=== PATIENT | male | born 1930 | race Caucasian/White ===

== ENCOUNTER 2018-01-10 09:54 | Outpatient (RCR) | payer MEDICARE ==
[2015-05-22 11:17] VITALS: Wt 83.3 kg
[2018-01-07 10:54] VITALS: BP 116/59
[2018-01-07 11:07] LABS: PLATELET COUNT, AUTOMATED 332 K/uL (150-450)
[~2018-01-10 09:54] MED LIST: ADV100/50 INH; ALBU8.5H IH; ASCO-182 PO; CALC-734 PO; CALCIUM PO; CEPH500C24 PO; CHOL100052 PO; FLU IM; FLUT1DIS27 IH; FLUT50DI3; GAB100 PO; GABA-503 PO; GLUC100026 PO; GUAI600T57 PO; LATODPT OD; LISI-351 PO; LOR5 PO; LOR5/325 PO; MUCINEX PO; OMEP-125 PO; OMEP-218 PO; PROAIRPT IH
[2018-01-10 10:02] VITALS: BP 116/61
--- NOTE | 2018-01-11 16:24 | ONCOLOGY FOLLOW UP NOTE ---
EVENT DATE: January 10, 2018 CHIEF COMPLAINT/REASON FOR VISIT Mr. Cardozo is a pleasant 87-year-old gentleman with a history of stage III colon cancer, here for followup. HISTORY OF PRESENT ILLNESS James returns. He had a large right-sided colon adenocarcinoma removed in June 2015. One of 16 lymph nodes was positive, making this a stage III cancer. We discussed adjuvant Xeloda, but he declined chemotherapy. He continues to feel quite well. His energy is good and he continues to drive. He is able to do all of his activities of daily living without issue. Bowel movements are unremarkable. No fevers, chills, weight change, abdominal pain, other concerning signs or symptoms. He does have what appears to be a venous ulcer on the right ankle, and I will set him up with wound care as well as a followup with Dr. Barnett. I believe that this is more likely related to circulation as opposed to a skin cancer or other issue. He has a followup later this month with Dermatology who will review it as well, but I would like to get Wound Care involved now. His CEA remains normal. PAST MEDICAL HISTORY, PAST SURGICAL HISTORY Hernia repair, shoulder repairs, hypertension, COPD, migraine headaches, asthma , osteoarthritis, stage III colon cancer. FAMILY HISTORY Mother at a young age from cancer of unknown type. SOCIAL HISTORY The patient is and presents with his . He has two children, ages 61 and 62, retired. A 30-pack year history of smoking, quitting in 1959. No significant alcohol use. REVIEW OF SYSTEMS CONSTITUTIONAL: Positive fatigue, mild. SKIN: The patient has a history of AKs that are followed closely by Dermatology. New ulcer on the right ankle. CARDIOVASCULAR: No chest pain or dyspnea on exertion. RESPIRATORY: No shortness of breath, wheeze or cough. GASTROINTESTINAL: No nausea, vomiting or blood in the stool. GENITOURINARY: No dysuria or hematuria. MUSCULOSKELETAL: No weakness or joint pain. PSYCHIATRIC: No anxiety or depression. ENDOCRINE: No heat or cold intolerance. NEUROLOGIC: No concerning neurologic deficits. HEMATOLOGIC/LYMPHATIC: No concerning lumps or bumps. The remainder of the 14-point review of systems otherwise negative. PHYSICAL EXAMINATION VITAL SIGNS: Blood pressure 116/61, pulse 82, respiratory rate 16, temperature 97 Fahrenheit. Oxygen saturation 98% on room air. Pain is 0/10 fatigue 0/10. Weight 83.3 kg. GENERAL: Stable condition, resting comfortably in the chair. SKIN: Patient has a 0.75 cm ulcer with surrounding scale on the right ankle. No signs of infection. I feel this is an ulcer as opposed to a skin lesion. HEENT: Normocephalic, atraumatic. CARDIOVASCULAR: Regular rate and rhythm. LUNGS: Clear. ABDOMEN: Soft, nontender, no masses or organomegaly. EXTREMITIES: No clubbing, cyanosis or significant edema. Trace edema in both ankles. Remainder of physical exam otherwise unremarkable. IMPRESSION AND PLAN Mr. Cardozo is a very pleasant 87-year-old gentleman with the following. 1. Stage III colon cancer with a large primary tumor in one of 16 lymph nodes positive. He declined chemotherapy, which is reasonable. Continue active surveillance. We will see him every three to four months. Scans as needed. 2. Ulcer of the skin on the right ankle. Established with Wound Care today ideally and followup with Dr. Barnett as well as with Dermatology as planned. I answered all of his questions today. Billing: Return visit level 3. Total time 20 minutes, counseling time 15. MTDD
[2018-02-04] MEDS ORDERED: CEPH-13 PO (16:17)
== END 2018-02-11 16:20 | disposition home or self-care (01) ==
LOC: ONC 09:54
PROVIDERS: ATTEND Nurse Practitioner Family
DX: C18.2 Malignant neoplasm of ascending colon (principal); C77.9 Secondary and unspecified malignant neoplasm of lymph node, unspecified; L97.319 Non-pressure chronic ulcer of right ankle with unspecified severity; R53.83 Other fatigue
CPT/HCPCS: 36415; 82378; 85025; G0463; 82040; 82247; 82310; 82374; 82435; 82565; 82947; 84075; 84132; 84155; 84295; 84450; 84460; 84520; 99212

== ENCOUNTER 2018-02-16 11:15 | Outpatient (RCR) | payer MEDICARE ==
[2015-05-22 11:17] VITALS: BMI 22.4
--- NOTE | 2018-01-11 08:12 | PT INITIAL EVALUATION ---
MEDICAL DIAGNOSIS: R) lateral ankle wound TREATMENT DIAGNOSIS: R) lateral ankle ulcer DATE OF ONSET: Patient reports wound has been present for "5 months" SUBJECTIVE: The patient presents today [facility], he was referred for wound care on R) lateral ankle wound. He reports that he noticed the wound about 5 months ago, but thought that it was a "melanoma spot ". He reports intermittent pain and sensitivity in the area. He occasionally covers the wound and applies ointment. REHAB PROBLEM LIST: Open wound of R) distal LE PREVIOUS MEDICAL HISTORY: h/o melanoma, stage III colon cancer with colon resection in 2015, COPD, restless leg syndrome OBJECTIVE: Wound Measurement L) lateral ankle, superior to malleolus: 1.3 cm L x 1.4 cm W x0.1 cm D ABIs R) LE: 1.15 L) LE: 1.17 Circumferential Measurements R) LE Superior to malleolus: 27.5 cm Mid calf: 32 cm L) LE Superior to malleolus: 23 cm Mid calf: 34 cm ASSESSMENT: The patient presents with small ulceration just superior to the lateral malleolus on the R) ankle. Wound bed demonstrates moderate slough, with mild erythema of the periwound skin and slight edema of the entire distal LE. PT completed conservative, selective debridement of non-viable tissue and slough with tweezers to the depth of the subcutaneous tissue. Pt with increased tenderness with palpation and debridement. Wound cleansed with sterile saline and gauze and then treated with medical honey, followed by calcium alginate with silver and a silicone bordered dressing. ABIs were measured bilaterally and found to be WNL (R=1.15, L=1.17). PT applied a short stretch compression wrap in a retrograde fashion to the L) LE to assist with LE edema management. 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 He will benefit from skilled PT wound care to include sharps debridement as well as advanced wound care product selection and application to facilitate wound healing. Short Term Goals 1: Pt to maintain clean, dry and intact dressing between wound care visits 2: Wound to demonstrate 100% granulation tissue with no s/s of infection 3: Wound to gradually epithelialize from the edges inward and demonstrate 100% closure 4: Pt to obtain appropriate compression garments for bilateral LEs to assist with LE edema management Patient's Goals Wound healing PLAN: Patient to be seen for skilled PT wound care to include sharps debridement as well as advanced wound care product selection and application to facilitate wound healing 1-2x/week for up to 90 days. Thank you for this referral. If you have any questions, comments, or concerns about this report or plan, please contact me at . Latrice Linares, PT, DPT MTDD
[~2018-02-16 11:15] MED LIST changes: +CEPH-13 PO
--- NOTE | 2018-02-16 13:58 | PT PLAN OF CARE ---
Physician: Dr. Sol Patient is being seen: James Bragg Therapist: Latrice Linares, PT, DPT Medical Diagnosis: R) lateral ankle wound Treatment Diagnosis: R) lateral ankle ulcer Date of Onset: Date of Initial Evaluation: 01/10/18 Date patient was last seen: 02/16/18 Number of treatments: 10 Number of cancellations/No shows: 0 INTERVENTIONS: The patient was seen for skilled sharps debridement as well as advanced wound care product selection and application to facilitate wound healing. He was fit for bilateral compression stockings and currently owns 2 pairs, which he plans to wear daily upon d/c. The patient was educated on proper skin care to prevent further ulceration. The patient has demonstrated excellent compliance and follow through. GOALS: 1: Pt to maintain clean, dry and intact dressing between wound care visits 2: Wound to demonstrate 100% granulation tissue with no s/s of infection 3: Wound to gradually epithelialize from the edges inward and demonstrate 100% closure 4: Pt to obtain appropriate compression garments for bilateral LEs to assist with LE edema management PATIENT'S GOAL: Wound healing Status of Patient's Goals: met Patient Compliance: Excellent Prognosis: Excellent Reasons for continuing therapy: None at this time. Wound is fully epithelialized. There continues to be dried and slightly draining skin across the dorsum of the foot. PT recommends that the patient bring this to his PCP's attention at his upcoming appt. to see if a topical treatment would be affective. There is no further PT wound care indicated at this time. The patient has purchased a second pair of compression stockings and plans to continue to use them as instructed. Circumferential Measurements R) LE Superior to malleolus: 24 cm Mid calf: 36 cm MTDD
== END 2018-02-16 16:17 | disposition home or self-care (01) ==
LOC: PT 11:15
PROVIDERS: ATTEND Internal Medicine
DX: L97.312 Non-pressure chronic ulcer of right ankle with fat layer exposed (principal); C18.2 Malignant neoplasm of ascending colon; J44.9 Chronic obstructive pulmonary disease, unspecified; G25.81 Restless legs syndrome; Z85.820 Personal history of malignant melanoma of skin; Z90.49 Acquired absence of other specified parts of digestive tract
CPT/HCPCS: 97161

== ENCOUNTER → 2019-04-17 | Outpatient (CLI) | payer MEDICARE ==
[2015-05-22 11:17] VITALS: BMI 22.4
[~2019-04-17] MED LIST changes: +BENZ200C15 PO; +FLUT16SP19 NS; -GABA-503 PO; +GABA-533 PO; +MUPI15CR10 TP; -OMEP-125 PO; +OMEP-126 PO; +PRED20TA6 PO
[2019-04-17 09:51] LABS: PLATELET COUNT, AUTOMATED 213 K/uL (150-450)
== END ==
LOC: LAB 09:37
PROVIDERS: ATTEND Internal Medicine
DX: Z12.5 Encounter for screening for malignant neoplasm of prostate (principal); R94.5 Abnormal results of liver function studies; I10 Essential (primary) hypertension; R79.89 Other specified abnormal findings of blood chemistry
CPT/HCPCS: 36415; 84443; 85025; G0103; 82040; 82247; 82310; 82374; 82435; 82565; 82947; 84075; 84132; 84153; 84155; 84295; 84450; 84460; 84520

== ENCOUNTER → 2019-04-20 | Outpatient (CLI) | payer MEDICARE ==
[2015-05-22 11:17] VITALS: BMI 22.4
[~2019-04-20] MED LIST changes: +HYDR-2966 PO
--- NOTE | 2019-04-20 10:47 | RADIOLOGY IMAGING REPORT ---
FACILITY: [facility] - [place], [place] PATIENT NAME: James Bragg : 1930 MR: [id number] V: [id number] EXAM DATE: ORDERING PHYSICIAN: VENKATESH NUNEZ TECHNOLOGIST: Location: [facility] - [place] Patient: James Bragg : 1930 Visit/Account:[id number] Date of Sevice: 04/20/2019 CHEST PA LAT Indication: sob, asthma Comparison: Chest x-ray 08/02/2015. Findings: Lungs: Prominent interstitial markings are seen throughout both lungs, unchanged. There is no focal airspace opacity. Mediastinum/pulmonary vasculature: Heart size and pulmonary vasculature are normal. Bones/soft tissues: There are postoperative changes from a left shoulder arthroplasty. IMPRESSION: 1. Prominent interstitial markings both lungs, stable. 2. No acute airspace opacity or pneumonia. Report Dictated By: Brody Serra at 04/20/2019 10:40 AM Report E-Signed By: Brody Serra at 04/20/2019 10:41 AM WSN:[email or web address]
== END ==
LOC: LAB 09:39
PROVIDERS: ATTEND Internal Medicine
DX: R06.00 Dyspnea, unspecified (principal); R60.9 Edema, unspecified; R73.09 Other abnormal glucose; I10 Essential (primary) hypertension; Z85.038 Personal history of other malignant neoplasm of large intestine; J45.909 Unspecified asthma, uncomplicated
CPT/HCPCS: 36415; 71046; 82378; 82465; 83036; 83718; 83880; 84478

== ENCOUNTER → 2019-04-25 | Outpatient (CLI) | payer MEDICARE ==
[2015-05-22 11:17] VITALS: BMI 22.4
== END ==
LOC: RESP 14:56
PROVIDERS: ATTEND Internal Medicine
DX: J98.4 Other disorders of lung (principal)
CPT/HCPCS: 94060; 94726; 94729